=== PATIENT | male | born 1945 | race Caucasian/White ===

== ENCOUNTER 2018-07-02 10:44 | Observation (INO) | payer MEDICARE, BC ==
[~2018-07-02] VITALS: Ht 170.2 cm; Wt 93.8 kg
[2018-07-02] VITALS (8 sets, daily range): BP systolic 98–152; BP diastolic 55–73; PULSE 60–75; TEMP 98–98.2
[~2018-07-02 10:44] MED LIST: ACTOS 15MG TAB15 MG PO; ASPIR-LOW81 MG PO; ASPIRIN 32325 MG/TAB PO; ASPIRIN 81M81 MG/TA2 PO; CADUET 10 MG-201 TAB PO; CELEBREX 200MG200 MG PO; COQ(10)1010 MG PO; GABAPENTIN600 MG PO; GLUCOPHAGE1000 MG PO; GLUCOTROL 5M5 MG/TAB PO; LIPITOR20 MG PO; LOPRESSOR 550 MG/TAB PO; LOTREL 10 MG-201 CAP PO; LOTREL PO; METFORMIN HCL1000 MG PO; NEURONTIN600 MG/TAB PO; ONGLYZA5 MG PO; PROZAC 20MG20 MG PO; TOPROL XL 50MG50 MG; TRICOR 48MG48 MG PO; TRICOR48 MG PO; VIIBRYD40 MG PO; VITAMIN D1000 IU PO; VITAMIN D2000 I1 PO
[2018-07-02 11:12] LABS: BASO % 0.4 % (0.0-2.0); EOS # 0.1 (0.0-0.7); EOS % 0.8 % (0-4.0); GRAN # 6.2 (1.4-6.5); GRAN % 73.5 % (42.2-75.2); HEMATOCRIT 48.2 % (42.0-52.0); HEMOGLOBIN 16.8 g/dl (13.5-18.0); LYMPH # 1.3 (1.2-3.4); LYMPH % 14.9 % (20.0-51.0); MEAN CELL VOLUME 94 fl (80.0-100.0); MEAN CORPUSCULAR HEMOGLOBIN 33 pg (27.0-31.0); MEAN CORPUSCULAR HGB CONC 35 g/dl (33.0-37.0); MEAN PLATELET VOLUME 10.1 fl (7.4-10.4); MONO # 0.8 (0.1-0.6); PLATELET COUNT 178 K/mm3 (130-400); RED BLOOD COUNT 5.11 M/mm3 (4.20-5.60); REDCELL DISTRIBUTION WIDTH-CV 13.2 % (11.5-14.5)
[2018-07-02 11:35] LABS: ALANINE AMINOTRANSFERASE 81 U/L (21-72); ALBUMIN 4.4 gm/dL (3.5-5.0); ALKALINE PHOSPHATASE 96 U/L (50-136); ANION GAP 7 mmol/L (7-16); AST,SGOT 60 U/L (15-37); BILIRUBIN,TOTAL 1.2 mg/dL (0.0-1.0); BLOOD UREA NITROGEN 18 mg/dL (9-20); CALCIUM 9.6 mg/dL (8.4-10.2); CARBON DIOXIDE 23 mmol/L (22-30); CHLORIDE 110 mmol/L (98-107); CREATININE, serum 1.11 mg/dL (0.66-1.25); GLUCOSE 166 mg/dL (74-106); LIPASE 194 U/L (23-300); POTASSIUM 4.6 mmol/L (3.4-5.0); SODIUM 140 mmol/L (137-145); TOTAL PROTEIN 7.3 gm/dL (6.4-8.2)
[2018-07-02 11:47] LABS: TROPONIN-I < 0.012 ng/mL (0.000-0.034)
[2018-07-02 15:32] LABS: INR 1.1 (0.8-3.0); PROTHROMBIN TIME 12.5 SECONDS (9.7-12.8)
[2018-07-02 15:34] LABS: PARTIAL THROMBOPLASTIN TIME 36.3 SECONDS (26.0-37.0)
[2018-07-02] MEDS ORDERED: ELIQUIS 2.5 PO (18:46)
[2018-07-02] MEDS ORDERED: JARDIANCE10 (18:47)
[2018-07-02] MEDS ORDERED: JANUVIA 100MG100 MG PO (18:48)
[2018-07-02] MEDS ORDERED: ERY-TAB250 MG PO (18:48)
[2018-07-03 09:03] VITALS: BP 152/73; PULSE 63; TEMP 98.4
[2018-07-03 09:49] LABS: BASO % 0.5 % (0.0-2.0); EOS # 0.1 (0.0-0.7); EOS % 1.3 % (0-4.0); GRAN % 63.2 % (42.2-75.2); HEMATOCRIT 45.8 % (42.0-52.0); HEMOGLOBIN 15.2 g/dl (13.5-18.0); LYMPH # 1.2 (1.2-3.4); LYMPH % 19.9 % (20.0-51.0); MEAN CELL VOLUME 97 fl (80.0-100.0); MEAN CORPUSCULAR HEMOGLOBIN 32 pg (27.0-31.0); MEAN CORPUSCULAR HGB CONC 33 g/dl (33.0-37.0); MEAN PLATELET VOLUME 10.3 fl (7.4-10.4); MONO # 0.9 (0.1-0.6); MONO % 14.9 % (1.7-9.3); PLATELET COUNT 166 K/mm3 (130-400); REDCELL DISTRIBUTION WIDTH-CV 13.4 % (11.5-14.5)
[2018-07-03 10:03] LABS: ALBUMIN 4.1 gm/dL (3.5-5.0); BILIRUBIN,TOTAL 1.3 mg/dL (0.0-1.0); CALCIUM 9.4 mg/dL (8.4-10.2); CHOLESTEROL RISK RATIO 2.7; CREATININE, serum 1.32 mg/dL (0.66-1.25); TOTAL PROTEIN 6.6 gm/dL (6.4-8.2)
[2018-07-03 10:25] LABS: ERYTHROCYTE SEDIMENTATION RATE 2 mm/hr (0-30)
[2018-07-03 11:38] VITALS: BP 135/69; PULSE 59; TEMP 98
[2018-07-03 16:37] LABS: FOLATE (FOLIC ACID) 13.3 ng/mL (7.0-31.4)
[2018-07-03 22:16] LABS: RPR (VDRL) Negative (Negative)
== END 2018-07-03 16:30 | disposition home or self-care (01) ==
LOC: COL.ER 10:44 → MEDICAL 13:41
PROVIDERS: Emergency Medicine; Physician Assistant; Psychiatry & Neurology Neurology
DX: R07.89 Other chest pain (principal); R51 Headache; E11.9 Type 2 diabetes mellitus without complications; I10 Essential (primary) hypertension; E78.5 Hyperlipidemia, unspecified; I25.118 Atherosclerotic heart disease of native coronary artery with other forms of angina pectoris; I16.0 Hypertensive urgency; R74.0 Nonspecific elevation of levels of transaminase and lactic acid dehydrogenase [LDH]; E11.40 Type 2 diabetes mellitus with diabetic neuropathy, unspecified; G31.84 Mild cognitive impairment of uncertain or unknown etiology; F32.9 Major depressive disorder, single episode, unspecified; Z79.82 Long term (current) use of aspirin; Z79.84 Long term (current) use of oral hypoglycemic drugs; Z79.01 Long term (current) use of anticoagulants; Z95.0 Presence of cardiac pacemaker; Z96.643 Presence of artificial hip joint, bilateral; Z86.718 Personal history of other venous thrombosis and embolism; Z80.1 Family history of malignant neoplasm of trachea, bronchus and lung; Z82.3 Family history of stroke; Z80.3 Family history of malignant neoplasm of breast; Z80.49 Family history of malignant neoplasm of other genital organs; Z88.0 Allergy status to penicillin; Z88.2 Allergy status to sulfonamides
CPT/HCPCS: G0378; G8978-GP; G8979-GP; J1644; J2250; J3010; J7030; Q9967

== ENCOUNTER 2018-08-05 13:30 | Outpatient (RCR) | payer MEDICARE, BC ==
[~2018-08-05 13:30] MED LIST changes: +ELIQUIS 2.5 PO; +ERY-TAB250 MG PO; +JANUVIA 100MG100 MG PO; +JARDIANCE10
== END 2018-08-12 11:07 | disposition home or self-care (01) ==
LOC: WSST 13:30
DX: R41.3 Other amnesia (principal); R43.1 Parosmia; F41.1 Generalized anxiety disorder
CPT/HCPCS: G9168-GN; G9169-GN; G9170-GN

== ENCOUNTER 2018-11-25 16:39 | Emergency (ER) | payer MEDICARE, BC ==
[~2018-11-25] VITALS: Ht 167.6 cm; Wt 90.9 kg
[2018-11-25 16:45] VITALS: BP 123/68; TEMP 97
[2018-11-25 17:36] VITALS: PULSE 62
== END 2018-11-25 17:37 | disposition home or self-care (01) ==
LOC: COL.ER 16:39
DX: S00.93XA Contusion of unspecified part of head, initial encounter (principal); I25.10 Atherosclerotic heart disease of native coronary artery without angina pectoris; E11.9 Type 2 diabetes mellitus without complications; I10 Essential (primary) hypertension; Z23 Encounter for immunization; Z95.0 Presence of cardiac pacemaker; I82.409 Acute embolism and thrombosis of unspecified deep veins of unspecified lower extremity; W22.8XXA Striking against or struck by other objects, initial encounter; Y92.009 Unspecified place in unspecified non-institutional (private) residence as the place of occurrence of the external cause

== ENCOUNTER 2018-12-03 06:59 | Emergency (ER) | payer MEDICARE, BC ==
[~2018-12-03] VITALS: Ht 170.2 cm; Wt 90.9 kg
[2018-12-03 06:59] VITALS: TEMP 98
[~2018-12-03 06:59] MED LIST changes: +NEURONTIN300 MG/CAP PO
[2018-12-03 07:18] LABS: BASO % 0.6 % (0.0-2.0); EOS # 0.1 (0.0-0.7); EOS % 2.5 % (0-4.0); GRAN % 57.2 % (42.2-75.2); HEMATOCRIT 43.7 % (42.0-52.0); HEMOGLOBIN 14.8 g/dl (13.5-18.0); LYMPH # 1.4 (1.2-3.4); LYMPH % 27.1 % (20.0-51.0); MEAN CELL VOLUME 96 fl (80.0-100.0); MEAN CORPUSCULAR HEMOGLOBIN 33 pg (27.0-31.0); MEAN CORPUSCULAR HGB CONC 34 g/dl (33.0-37.0); MEAN PLATELET VOLUME 9.8 fl (7.4-10.4); MONO # 0.6 (0.1-0.6); MONO % 12.4 % (1.7-9.3); PLATELET COUNT 179 K/mm3 (130-400); RED BLOOD COUNT 4.54 M/mm3 (4.20-5.60)
[2018-12-03 07:19] LABS: PROTHROMBIN TIME 11.9 SECONDS (9.7-12.8)
[2018-12-03 07:22] LABS: PARTIAL THROMBOPLASTIN TIME 33.3 SECONDS (26.0-37.0)
[2018-12-03 07:23] LABS: ALANINE AMINOTRANSFERASE 42 U/L (21-72); ALKALINE PHOSPHATASE 109 U/L (50-136); ANION GAP 7 mmol/L (7-16); AST,SGOT 29 U/L (15-37); BILIRUBIN,TOTAL 0.8 mg/dL (0.0-1.0); BLOOD UREA NITROGEN 16 mg/dL (9-20); CALCIUM 9.4 mg/dL (8.4-10.2); CARBON DIOXIDE 27 mmol/L (22-30); CHLORIDE 104 mmol/L (98-107); CREATININE, serum 1.11 (0.66-1.25); GLUCOSE 148 mg/dL (74-106); POTASSIUM 4.9 mmol/L (3.4-5.0); SODIUM 138 mmol/L (137-145); TOTAL PROTEIN 6.9 gm/dL (6.4-8.2)
[2018-12-03 07:40] LABS: TROPONIN-I < 0.012 ng/mL (0.000-0.035)
[2018-12-03] MEDS ORDERED: LOTENSIN20 MG PO (09:50)
[2018-12-03] MEDS ORDERED: TRULICITY1.5 MG/0.5 SQ (09:51)
[2018-12-03] MEDS ORDERED: DYNACIRC5 MG PO (10:00)
[2018-12-03 13:15] VITALS: BP 120/81; PULSE 60
== END 2018-12-03 13:18 | disposition home or self-care (01) ==
LOC: COL.ER 06:59
PROVIDERS: Family Medicine
DX: R07.89 Other chest pain (principal); I10 Essential (primary) hypertension; E11.9 Type 2 diabetes mellitus without complications; Z79.01 Long term (current) use of anticoagulants
CPT/HCPCS: J7030

== ENCOUNTER 2019-10-14 06:53 | Emergency (ER) | payer MEDICARE, BC ==
[~2019-10-14] VITALS: Ht 170.2 cm; Wt 95.5 kg
[~2019-10-14 06:53] MED LIST changes: +DYNACIRC5 MG PO; +LIPITOR 40MG TA40 MG PO; +LIPITOR 80MG80 MG PO; +LOTENSIN20 MG PO; +NORVASC 10MG10 MG PO; +TRULICITY1.5 MG/0.5 SQ
[2019-10-14 07:04] VITALS: BP 140/72; TEMP 97.5
[2019-10-14 08:18] VITALS: PULSE 64
== END 2019-10-14 08:19 | disposition home or self-care (01) ==
LOC: COL.ER 06:53
DX: S09.90XA Unspecified injury of head, initial encounter (principal); S01.81XA Laceration without foreign body of other part of head, initial encounter; I48.91 Unspecified atrial fibrillation; Z95.0 Presence of cardiac pacemaker; Z79.82 Long term (current) use of aspirin; Z79.01 Long term (current) use of anticoagulants; W01.0XXA Fall on same level from slipping, tripping and stumbling without subsequent striking against object, initial encounter

== ENCOUNTER → 2019-11-01 | Outpatient (CLI) | payer MEDICARE, BC | LOC: COL.RAD 06:39 | DX: K31.84 Gastroparesis (principal); R19.7 Diarrhea, unspecified; R14.0 Abdominal distension (gaseous) | CPT/HCPCS: A9541 ==

== ENCOUNTER → 2020-03-14 | Outpatient (CLI) | payer MEDICARE, BC | LOC: COL.RAD 07:35 | DX: Z01.812 Encounter for preprocedural laboratory examination (principal); K55.9 Vascular disorder of intestine, unspecified; K57.30 Diverticulosis of large intestine without perforation or abscess without bleeding; I70.8 Atherosclerosis of other arteries; Z96.643 Presence of artificial hip joint, bilateral | CPT/HCPCS: Q9967 ==

== ENCOUNTER → 2020-04-05 | Outpatient (CLI) | payer MEDICARE, BC | LOC: COL.RAD 08:40 | DX: Q43.0 Meckel's diverticulum (displaced) (hypertrophic) (principal) | CPT/HCPCS: A9512 ==

== ENCOUNTER 2020-09-15 14:17 | Emergency (ER) | payer MEDICARE, BC ==
[~2020-09-15] VITALS: Ht 170.2 cm; Wt 93.2 kg
[2020-09-15 15:25] LABS: BASO % 0.6 % (0.0-2.0); EOS # 0.1 (0.0-0.7); EOS % 1.1 % (0-4.0); GRAN # 4.5 (1.4-6.5); GRAN % 69.1 % (42.2-75.2); HEMATOCRIT 43.2 % (42.0-52.0); HEMOGLOBIN 14.6 g/dl (13.5-18.0); LYMPH # 1.2 (1.2-3.4); LYMPH % 17.9 % (20.0-51.0); MEAN CELL VOLUME 95 fl (80.0-100.0); MEAN CORPUSCULAR HEMOGLOBIN 32 pg (27.0-31.0); MEAN CORPUSCULAR HGB CONC 34 g/dl (33.0-37.0); MEAN PLATELET VOLUME 9.9 fl (7.4-10.4); MONO # 0.7 (0.1-0.6); PLATELET COUNT 186 K/mm3 (130-400); RED BLOOD COUNT 4.54 M/mm3 (4.20-5.60); REDCELL DISTRIBUTION WIDTH-CV 13.2 % (11.5-14.5)
[2020-09-15 15:31] LABS: ANION GAP 7 mmol/L (7-16); BLOOD UREA NITROGEN 21 mg/dL (9-20); CARBON DIOXIDE 25 mmol/L (22-30); CHLORIDE 106 mmol/L (98-107); CREATININE, serum 1.31 (0.66-1.25); GLUCOSE 118 mg/dL (74-106); POTASSIUM 4.1 mmol/L (3.4-5.0); SODIUM 138 mmol/L (137-145)
[2020-09-15 15:51] LABS: TROPONIN-I < 0.012 ng/mL (0.000-0.035)
[2020-09-15 16:44] VITALS: BP 159/84; PULSE 60; TEMP 98
== END 2020-09-15 16:44 | disposition home or self-care (01) ==
LOC: COL.ER 14:17
PROVIDERS: Emergency Medicine
DX: S51.011A Laceration without foreign body of right elbow, initial encounter (principal); I10 Essential (primary) hypertension; E78.5 Hyperlipidemia, unspecified; I25.10 Atherosclerotic heart disease of native coronary artery without angina pectoris; I48.91 Unspecified atrial fibrillation; E11.40 Type 2 diabetes mellitus with diabetic neuropathy, unspecified; Z79.01 Long term (current) use of anticoagulants; Z95.0 Presence of cardiac pacemaker; Z86.718 Personal history of other venous thrombosis and embolism; Z88.0 Allergy status to penicillin; Z88.2 Allergy status to sulfonamides; Z79.82 Long term (current) use of aspirin; Z79.84 Long term (current) use of oral hypoglycemic drugs; W19.XXXA Unspecified fall, initial encounter

== ENCOUNTER 2021-04-01 19:02 | Emergency (ER) | payer MEDICARE, BC ==
[~2021-04-01] VITALS: Ht 167.6 cm; Wt 93.2 kg
[2021-04-01 22:10] VITALS: BP 149/77; PULSE 70; TEMP 98.3
== END 2021-04-01 22:10 | disposition home or self-care (01) ==
LOC: COL.ER 19:02
DX: S99.922A Unspecified injury of left foot, initial encounter (principal); E11.9 Type 2 diabetes mellitus without complications; I10 Essential (primary) hypertension; Z79.899 Other long term (current) drug therapy; Z79.84 Long term (current) use of oral hypoglycemic drugs; X58.XXXA Exposure to other specified factors, initial encounter; Y93.01 Activity, walking, marching and hiking

== ENCOUNTER 2022-02-26 14:28 | Observation (INO) | payer MEDICARE, BC ==
[~2022-02-26] VITALS: Ht 167.6 cm; Wt 87.0 kg
[2022-02-26 15:18] LABS: BASO % 0.5 % (0.0-2.0); EOS # 0.1 K/mm3 (0.0-0.7); EOS % 0.8 % (0.0-4.0); GRAN # 4.3 K/mm3 (1.4-6.5); GRAN % 66.6 % (42.2-75.2); HEMATOCRIT 39.2 % (42.0-52.0); HEMOGLOBIN 13.3 g/dl (13.5-18.0); LYMPH # 1.5 K/mm3 (1.2-3.4); LYMPH % 23.4 % (20.0-51.0); MEAN CELL VOLUME 92 fl (80.0-100.0); MEAN CORPUSCULAR HEMOGLOBIN 31 pg (27-31); MEAN CORPUSCULAR HGB CONC 34 g/dl (33.0-37.0); MEAN PLATELET VOLUME 9.4 fl (7.4-10.4); MONO # 0.6 K/mm3 (0.1-0.6); MONO % 8.5 % (1.7-9.3); PLATELET COUNT 195 K/mm3 (130-400); RED BLOOD COUNT 4.28 M/mm3 (4.20-5.60); REDCELL DISTRIBUTION WIDTH-CV 13.2 % (11.5-14.5)
[2022-02-26 15:19] LABS: ACETAMINOPHEN < 1.0 ug/mL (10-30); ALANINE AMINOTRANSFERASE 24 U/L (0-55); ALBUMIN 3.9 gm/dL (3.4-4.8); ALCOHOL(ethanol),MEDICAL < 10 mg/dL (0-10); ALKALINE PHOSPHATASE 93 U/L (40-150); ANION GAP 14 mmol/L (7-16); AST,SGOT 25 U/L (5-34); BILIRUBIN,TOTAL 0.8 mg/dL (0.2-1.2); BLOOD UREA NITROGEN 31 mg/dL (8-26); CARBON DIOXIDE 21 mmol/L (23-31); CHLORIDE 108 mmol/L (98-107); CREATININE, serum 1.45 mg/dL (0.72-1.25); GLUCOSE 141 mg/dL (70-99); SALICYLATE < 5.0 mg/dL (15.0-30.0); SODIUM 143 mmol/L (136-145); TOTAL PROTEIN 6.5 gm/dL (6.2-8.1)
[2022-02-26 15:49] LABS: COLLECTION METHOD CLEAN CATCH
[2022-02-26 16:00] VITALS: BP 148/70; PULSE 63; TEMP 98.5
[2022-02-26 16:13] LABS: MUCOUS Present (NOT PRESENT); SQUAMOUS EPITHELIAL None Seen /hpf (0-10); URINE BACTERIA None Seen /hpf (NONE SEEN); URINE RBC 0-2 /hpf (0-2)
[2022-02-26 16:14] LABS: PH 5 (5-8); URINE APPEARANCE Clear (CLEAR/HAZY); URINE COLOR Yellow (YELLOW); URINE PROTEIN(semi-quant) 1+ (NEGATIVE)
[2022-02-26 16:15] LABS: URINE BILIRUBIN Negative (NEGATIVE); URINE BLOOD Negative (NEGATIVE); URINE GLUCOSE 1+ (NEGATIVE); URINE KETONE Trace (NEGATIVE); URINE NITRATE Negative (NEGATIVE); URINE UROBILINOGEN Negative (NEGATIVE)
[2022-02-26 16:16] LABS: URINE LEUKOCYTE ESTERASE Negative (NEGATIVE)
[2022-02-26 16:18] LABS: TRICYCLIC ANTIDEPRESS URINE NEGATIVE
--- NOTE | 2022-02-26 16:54 | NUR ---
SHERWIN responded to consult. The patient was brought in by EMS after a welfare check. His PCP, Dr. Valentin, had been trying to get in touch with him for a few days for concerns. The patient provides that he has been feeling sad and depressed. The patient normally lives with his , Celine, but Celine has been at [facility] for a skilled stay since 02/03. SHERWIN met with the patient. The patient states that he is ready to get home. SHERWIN inquired about what brought him to the hospital. The patient states that he has just been sad, because he has not been able to see his and he is lonely. SHERWIN asked if he has been able to go over to [facility] to see his . The patient states that he has not. The patient states that he is independent at home and does not have any DME. He denies having any home health services. He states that he does have meals delivered to his home. SHERWIN then received a phone call from wastewater treatment supervisor, stating that [facility] would be able to emergency admit the patient to skilled today. SHERWIN asked the patient if he would like to go to [facility]. The patient states that he would. SHERWIN contacted and faxed a referral to Bebo at [facility]. Bebo reports that he will need to check with his wastewater treatment supervisor. He states that with it being late in the day, he had fear of elopement from the patient and wants to get everything lined up. He states that they can look at taking the patient tomorrow, 02/27. SHERWIN updated the ED doctor and Daycare Teacher. SHERWIN attempted to contact the patient's , Celine. Celine did not answer and her voicemail box is not set up yet. SHERWIN was unable to leave a message.
--- NOTE | 2022-02-26 18:28 | NUR ---
PT ADMITTED TO UNIT. ADMISSION INTAKE AND ASSESSMENT COMPLETED. UNABLE TO UPDATE MED REC AT THIS TIME. PT ORIENTED X2. WILL PASS ALONG REPORT TO ONCOMING RN.
[2022-02-26 18:35] VITALS: BP 148/70; PULSE 63; TEMP 98.5
[2022-02-26 20:34] VITALS: BP 180/60; PULSE 63; TEMP 98.3
[2022-02-26 23:23] VITALS: BP 154/71; PULSE 66; TEMP 97.5
[2022-02-27 04:20] VITALS: BP 141/70; PULSE 61; TEMP 97.5
--- NOTE | 2022-02-27 06:33 | NUR ---
Pt had uneventful night. Medications given per MAR. Patient denies pain. Pt slept in bed all night, without any needs. No other concerns.
[2022-02-27 06:48] LABS: BASO % 0.4 % (0.0-2.0); EOS # 0.2 K/mm3 (0.0-0.7); EOS % 2.6 % (0.0-4.0); GRAN # 3.1 K/mm3 (1.4-6.5); GRAN % 54.5 % (42.2-75.2); HEMOGLOBIN 12.4 g/dl (13.5-18.0); LYMPH # 1.7 K/mm3 (1.2-3.4); LYMPH % 30.7 % (20.0-51.0); MEAN CELL VOLUME 93 fl (80.0-100.0); MEAN CORPUSCULAR HEMOGLOBIN 32 pg (27-31); MEAN CORPUSCULAR HGB CONC 34 g/dl (33.0-37.0); MEAN PLATELET VOLUME 9.9 fl (7.4-10.4); MONO # 0.7 K/mm3 (0.1-0.6); MONO % 11.6 % (1.7-9.3); PLATELET COUNT 168 K/mm3 (130-400); RED BLOOD COUNT 3.94 M/mm3 (4.20-5.60); REDCELL DISTRIBUTION WIDTH-CV 13.2 % (11.5-14.5)
[2022-02-27 06:53] LABS: HEMATOCRIT 36.6 % (42.0-52.0)
[2022-02-27 07:07] LABS: ALBUMIN 3.2 gm/dL (3.4-4.8); CALCIUM 8.5 mg/dL (8.4-10.2); CREATININE, serum 1.09 mg/dL (0.72-1.25); MAGNESIUM 1.9 mg/dL (1.6-2.6); PHOSPHOROUS 3.9 mg/dL (2.3-4.7); POTASSIUM 3.8 mmol/L (3.5-4.5)
[2022-02-27 07:26] VITALS: BP 132/65; PULSE 59; TEMP 97.4
--- NOTE | 2022-02-27 08:46 | NUR ---
Patient is sitting on the side of the bed, alert but disoriented, asked why is he here, explained waiting for placement at [facility] today. Receiving NS AT 50ML/HR. Assessment completed, medications provided. Assisted to order breakfast. No other needs at this time. Call light within reach.
--- NOTE | 2022-02-27 09:11 | NUR ---
Clinical updates faxed to [facility] states that they are able to take him today if the patient is ready for discharge.
[2022-02-27] MEDS ORDERED: TOPROL XL 25MG25 MG PO (09:41)
[2022-02-27] MEDS ORDERED: NOVLOG SQ (09:41)
[2022-02-27 11:42] VITALS: BP 126/59; PULSE 61; TEMP 98.2
--- NOTE | 2022-02-27 11:42 | NUR ---
Patient had a COVID 19 positive result the last February 16, according to SHERWIN. Isolation prec DC.
--- NOTE | 2022-02-27 13:07 | NUR ---
press worker helper notified [facility] that the physician is ready to discharge the patient. [facility] requests that we complete an emergency guardianship with this patient as their staff does not feel the patient has decision making capacity. SHERWIN collaborated with who feels like the patient can make his own decisions. Phone call made to PCP office to see if an established DPOA-HC is on file with them. SHERWIN spoke with SHERWIN Dixon at PCP office who stated they did not have one. Destiny is able to provide me with the patient's sister in laws name and phone number: Ellyn Gibbons ([phone]) who lives in [place]. SHERWIN and patient's RN met with patient to see if he would make a DPOA-HC. Patient verbalized that he has created a DPOA-HC, a financial DPOA and a living will and all are at home listing his Celine as his primary agent and Ellyn as his secondary agent. Patient is able to tell me where he was, what city he was in, the month, year and the president correctly. In addition, he is able to tell me in his words that Ellyn would be his decision maker if he couldn't make decisions. States that he and Celine raised Ellyn and her sister Adelia Delvalle as teenagers and their mother is Dolly Garcia. He is able to provide me with the information that Ellyn lives in [place], but due to his phone being , he cannot look up her number. Patient admits to having issues with his short term memory, but his meterman memory is good. Signed copy placed in the patient's chart and original provided back to the patient. After meeting with the patient, SHERWIN contacted Ellyn to inform her that the patient has been accepted to [facility] for admission today. Provided a brief update on the patient and i let her know that he completed a DPOA-HC listing her as her agent. Ellyn is agreeable to being is agent and is glad the patient completed one. Without knowledge of my conversation with the patient, Ellyn provided me the background information that the patient and Celine raised her leidy Delvalle, confirming what the patient had said. Ellyn states that she and her are driving in from [place] next week and her sister Adelia Delvalle is flying in from [place] next . Bebo notified that at this time we will not be doing an emergency guardianship due to the above. Bebo verbalized his understanding. Transportation arranged for the patient to be picked up at 1400. SHERWIN notified that the patient's covid swab came back positive. SHERWIN contacted Bebo who states that the patient and his both tested positive on 02/14 and that their 10 day quarantine was up this past Saturday 02/24. Staff notified. Discharge plan: [facility] @ 1400
[2022-02-27 13:15] VITALS: BP 126/59; PULSE 61; TEMP 98.2
--- NOTE | 2022-02-27 14:20 | NUR ---
Report was given to nurse at [facility] RN NURSE Alycia Baldwin Pt was picked up by [facility] Castro who got pt health information. IV discontinued.
[2022-02-27] MEDS ORDERED: NOVOLOG 100U100 U/M1 SQ (16:47)
== END 2022-02-27 14:20 | disposition home or self-care (01) ==
LOC: COL.ER 14:28 → MEDICAL 17:13
PROVIDERS: Family Medicine; ADMIT Internal Medicine
DX: R53.1 Weakness (principal); R62.7 Adult failure to thrive; U07.1 COVID-19; E11.9 Type 2 diabetes mellitus without complications; I10 Essential (primary) hypertension; I48.91 Unspecified atrial fibrillation; I25.10 Atherosclerotic heart disease of native coronary artery without angina pectoris; Z79.899 Other long term (current) drug therapy; Z79.01 Long term (current) use of anticoagulants; Z79.82 Long term (current) use of aspirin
CPT/HCPCS: G0378; J1815; J7030

== ENCOUNTER 2022-03-10 21:19 | Emergency (ER) | payer MEDICARE, BC ==
[~2022-03-10] VITALS: Ht 167.6 cm; Wt 79.5 kg
[~2022-03-10 21:19] MED LIST changes: +NOVLOG SQ; +NOVOLOG 100U100 U/M1 SQ; +TOPROL XL 25MG25 MG PO
[2022-03-10 21:23] VITALS: TEMP 97.1
[2022-03-10 21:32] LABS: BASO % 0.5 % (0.0-2.0); EOS # 0.1 K/mm3 (0.0-0.7); EOS % 1.7 % (0.0-4.0); GRAN % 62.6 % (42.2-75.2); HEMATOCRIT 36.8 % (42.0-52.0); HEMOGLOBIN 12.3 g/dl (13.5-18.0); LYMPH # 1.5 K/mm3 (1.2-3.4); LYMPH % 24.4 % (20.0-51.0); MEAN CELL VOLUME 94 fl (80.0-100.0); MEAN CORPUSCULAR HEMOGLOBIN 32 pg (27-31); MEAN CORPUSCULAR HGB CONC 33 g/dl (33.0-37.0); MEAN PLATELET VOLUME 9.8 fl (7.4-10.4); MONO # 0.7 K/mm3 (0.1-0.6); MONO % 10.5 % (1.7-9.3); PLATELET COUNT 166 K/mm3 (130-400); REDCELL DISTRIBUTION WIDTH-CV 13.5 % (11.5-14.5)
[2022-03-10 21:51] LABS: ALANINE AMINOTRANSFERASE 34 U/L (0-55); ALBUMIN 3.3 gm/dL (3.4-4.8); ALKALINE PHOSPHATASE 83 U/L (40-150); ANION GAP 15 mmol/L (7-16); AST,SGOT 21 U/L (5-34); BILIRUBIN,TOTAL 0.4 mg/dL (0.2-1.2); BLOOD UREA NITROGEN 23 mg/dL (8-26); CALCIUM 8.7 mg/dL (8.4-10.2); CARBON DIOXIDE 19 mmol/L (23-31); CHLORIDE 108 mmol/L (98-107); CREATININE, serum 1.56 mg/dL (0.72-1.25); GLUCOSE 175 mg/dL (70-99); POTASSIUM 4.2 mmol/L (3.5-4.5); SODIUM 142 mmol/L (136-145); TOTAL PROTEIN 5.6 gm/dL (6.2-8.1)
[2022-03-10 21:54] LABS: C-REACTIVE PROTEIN < 0.02 mg/dL (0.00-0.50)
[2022-03-10 22:09] LABS: COLLECTION METHOD CLEAN CATCH
[2022-03-10 22:14] LABS: MUCOUS Present (NOT PRESENT); PH 5 (5-8); SQUAMOUS EPITHELIAL None Seen /hpf (0-10); URINE APPEARANCE Clear (CLEAR/HAZY); URINE BACTERIA Rare /hpf (NONE SEEN); URINE BLOOD Negative (NEGATIVE); URINE COLOR Yellow (YELLOW); URINE GLUCOSE 3+ (NEGATIVE); URINE KETONE Trace (NEGATIVE); URINE NITRATE Negative (NEGATIVE); URINE PROTEIN(semi-quant) Negative (NEGATIVE); URINE RBC 0-2 /hpf (0-2); URINE UROBILINOGEN Negative (NEGATIVE)
[2022-03-10 23:20] VITALS: BP 172/78; PULSE 72
== END 2022-03-10 23:20 | disposition home or self-care (01) ==
LOC: COL.ER 21:19
PROVIDERS: Family Medicine
DX: E86.0 Dehydration (principal); R55 Syncope and collapse; R79.89 Other specified abnormal findings of blood chemistry; W01.198A Fall on same level from slipping, tripping and stumbling with subsequent striking against other object, initial encounter
CPT/HCPCS: J7030